=== PATIENT | male | born 1985 | race Caucasian/White ===

== ENCOUNTER 2018-09-03 18:45 | Observation (INO) | payer BC, OTHER ==
[~2018-09-03 18:45] MED LIST: ISOVUE-370 76%-LOCM 1 ML ONE
[2018-09-03 19:47] LABS: #Eosinphils 0.1 thou/uL (0.0-0.7); #Lymphocytes 2.4 thou/uL (1.20-3.40); #Monocytes 0.8 thou/uL (0.11-0.59); #Neutrophils 6.6 thou/uL (1.40-6.50); %Basophils 0.4 % (0.0-1.0); %Eosinophils 0.6 % (0.0-10.0); %Lymphocytes 24.5 % (21.0-51.0); %Monocytes 7.7 % (0.0-10.0); %Neutrophils 66.9 % (42.0-75.0); Hemoglobin 15.3 g/dL (14.0-18.0); Mean Corpuscular HGB CONC 33.6 g/dL (32.0-36.0); Mean Corpuscular Hemoglobin 29.9 pg (27.0-31.0); Mean Corpuscular Volume 89.1 fL (78.0-98.0); Platelet Count 254 thou/uL (130-400); RBC Distribution Width 12.3 % (11.5-14.5); White Blood Cell (WBC) Count 9.9 thou/uL (4.8-10.8)
[2018-09-03 20:06] LABS: ALT (SGPT) 22 U/L (8-55); AST (SGOT) 20 U/L (5-34); Albumin 4.4 g/dL (3.5-5.0); Alkaline Phosphatase 54 U/L (40-150); Anion Gap 11 mmol/L (10-20); BUN (Urea Nitrogen) 10 mg/dL (8.9-20.6); Bilirubin, Total 0.8 mg/dL (0.2-1.2); CK (CPK) 164 U/L (30-200); Calc. Creatinine Clearance 0 mL/min (70-130); Calcium 9.7 mg/dL (7.8-10.44); Carbon Dioxide 25 mmol/L (22-29); Chloride 104 mmol/L (98-107); Estimated GFR-MDRD Greater than 90; Glucose 92 mg/dL (70-105); Lipase 23 U/L (8-78); Potassium 4.1 mmol/L (3.5-5.1); Protein, Total 7.4 g/dL (6.0-8.3); Sodium 136 mmol/L (136-145)
[2018-09-03 20:09] LABS: Bilirubin Negative (Negative); Blood, Urine Negative (Negative); Clarity CLEAR (Clear); Glucose, Urine (Dipstick) Negative (Negative); Leukocyte Negative (Negative); Nitrite Negative (Negative); Protein, Urine (Dipstick) Negative (Neg-Trace); Specific Gravity, Urine 1.002 (1.002-1.036); Urobilinogen 0.2 mg/dL (0.2-1.0); pH, Urine 6.5 (5.0-9.0)
[2018-09-03] MEDS ORDERED: Ondansetron PF 4 MG/2 ML Vial ONE (21:30)
[2018-09-03] MEDS ORDERED: Dicyclomine 20 MG TAB ONE (21:30)
[2018-09-03] MEDS ORDERED: Ketorolac Tromethamine 30 MG/ML VIAL ONE (21:30)
--- NOTE | 2018-09-03 23:01 | CT ---
CT ABDOMEN AND PELVIS WITH IV CONTRAST: 09/03/18 HISTORY: Abdominal pain. FINDINGS: The lung bases are clear. The liver, spleen, pancreas , adrenal glands and right kidney are normal. T he patient is post cholecystectomy. There is a nonobstructing tiny calculus in the left kidney. There is an exophytic complex mass arising from the left kidney measuring 2.7 cm. No free air, free fluid or lymphadenopathy is seen in the abdomen or pelvis. A small fat containing l eft inguinal hernia is seen. The appendix is dilated and fluid filled with periappendiceal inflammato ry changes. A circumaortic left renal vein is present. IMPRESSION: 1. Acute appendicitis. 2. Complex 2.7 cm left renal mass. This should be evaluated with an MRI (with and without IV co ntrast). 3. Tiny nonobstructing left renal calculus. Discussed over the telephone with Gracie Conte NP of the Emergency Room at 10:52 p.m. POS: FRANCES
[2018-09-03] MEDS ORDERED: Piperacillin/Tazobactam 4.5 GM VIAL ONE (23:19)
[2018-09-03] MEDS ORDERED: Sodium Chloride 0.9% 100 ML ONE (23:20)
[2018-09-04] MEDS ORDERED: Ondansetron ODT 4 MG TAB SL PRN (00:11)
[2018-09-04] MEDS ORDERED: Ondansetron PF 4 MG/2 ML Vial IVP PRN (00:11)
[2018-09-04] MEDS ORDERED: Acetaminophen 325 MG TAB PO PRN (00:11)
[2018-09-04] MEDS ORDERED: Morphine 4 MG/ML VIAL SLOW IVP PRN (00:12)
[2018-09-04] MEDS ORDERED: Ketorolac Tromethamine 30 MG/ML VIAL IVP PRN (00:12)
[2018-09-04 00:29] VITALS: BMI 37.3
[2018-09-04] MEDS: Sodium Chloride 0.9% 1,000 ML IV SCH ×2 (01:02→06:04)
[2018-09-04] MEDS ORDERED: Acetaminophen 1,000 MG in Premix Bag 1 BAG IVPB SCH (08:15)
[2018-09-04] MEDS ORDERED: Piperacillin/Tazobactam 3.375 GM in Sodium Chloride 0.9% 100 ML IVPB SCH (09:00)
[2018-09-04] MEDS ORDERED: Ketorolac Tromethamine 30 MG/ML VIAL IVP SCH (09:00)
[2018-09-04] MEDS ORDERED: traMADol HCl 50 MG TAB PO PRN ×2 (09:46)
[2018-09-04] MEDS ORDERED: Ibuprofen 600 MG TAB PO PRN (09:46)
[2018-09-04] MEDS ORDERED: Acetaminophen 500 MG TAB PO PRN (09:46)
[2018-09-04] MEDS ORDERED: Ondansetron HCl/PF 4 MG/2 ML Vial IVP PRN (10:05)
[2018-09-04] MEDS ORDERED: Promethazine HCl 25 MG/ML VIAL IM PRN (10:05)
[2018-09-04] MEDS ORDERED: Promethazine HCl 25 MG/ML VIAL SLOW IVP PRN (10:05)
--- NOTE | 2018-09-04 10:13 | HP ---
HISTORY OF PRESENT ILLNESS: Benjamín Mccoy junior is a 33-year-old male from [facility], , who presents with a 2-day history of lower abdominal pain, localized to the right lower quadrant. Pain is worse with movement. He has suffered anorexia. He presents to the emergency room. He was noted to have a white count of 9 and hemoglobin of 15. Comprehensive metabolic profile is normal. Suspected appendicitis. He underwent a CAT scan of the abdomen and pelvis on 09/03/2018 at 8:56, noting changes consistent with acute appendicitis. He had a complex 2.7 cm left renal mass that on MRI was suggested. He had a small fat-containing left inguinal hernia. He had a nonobstructing calculus in the left kidney. The patient has been afebrile. Plan is for laparoscopic video appendectomy as an outpatient, outpatient workup of this left renal mass, and examination to discuss his fat-containing hernia in the future. ALLERGIES: NONE. HABITS: Tobacco, none. Alcohol, none. MEDICATIONS: 1. Losartan 25 mg a day. 2. Amlodipine 10 mg at bedtime. In our hospital, he has been receiving Zosyn. PAST SURGICAL HISTORY: 1. Laparoscopic cholecystectomy. 2. ORIF of left lower extremity fracture. PAST MEDICAL HISTORY: 1. Hypertension. 2. Obesity, 5 feet 7 inches, 230 pounds, 37 BMI. PHYSICAL EXAMINATION: HEAD, EARS, EYES, NOSE, AND THROAT: Unremarkable. LUNGS: Clear to auscultation. CARDIAC: Regular rate and rhythm without murmur or gallop. ABDOMEN: Soft. Tenderness in his right lower quadrant, guarding, rebound. EXTREMITIES: Unremarkable. ASSESSMENT AND PLAN: 1. Acute appendicitis. We recommend laparoscopic video appendectomy. Risks of infection, bleeding, visceral injury were explained and he consents. 2. Left renal mass. He will need workup as an outpatient and referral to Urology. 3. Inguinal hernia, suggested on the CAT scan, fat containing, left, suggested. We will examine him as outpatient in the office on followup. 4. Hypertension. 5. Obesity. 6. Metabolic syndrome. 7. Circumaortic left renal vein present on CAT scan. Job ID: [id number]
[2018-09-04] MEDS ORDERED: Bupivacaine HCl 0.5%/Epinephrine 1:200,000/PF 30 ml Vial ONE (10:36)
[2018-09-04] MEDS ORDERED: Lidocaine 2% Jelly 5 ML TUBE ONE (11:29)
[2018-09-04] MEDS ORDERED: Midazolam HCl 2 mg/2 ml Vial ONE (11:29)
[2018-09-04] MEDS ORDERED: Fentanyl 100 MCG/2 ML VIAL ONE (11:29)
[2018-09-04] MEDS ORDERED: Adacel (T-DAP) 0.5 ML SYRINGE IM ONE (15:15)
--- NOTE | 2018-09-04 15:48 | OP ---
DATE OF PROCEDURE: 09/04/2018 PREOPERATIVE DIAGNOSIS: Acute appendicitis. POSTOPERATIVE DIAGNOSIS: Acute appendicitis. PROCEDURE PERFORMED: Laparoscopic appendectomy. ANESTHESIA: General, local 0.5% Marcaine with epinephrine 30 mL. Note, the patient was very obese. An appendectomy was very difficult due to fatty tissue surrounding the cecum, appendix, and terminal ileum requiring mobilization of the right colon and ileum. DESCRIPTION OF PROCEDURE: The patient was taken to the operating room, where under general anesthesia. Willett catheter was placed at the beginning of the procedure and removed at the end. Abdomen was prepared with ChloraPrep, draped in routine fashion. Local anesthetic was infiltrated in the skin and subcutaneous tissue about all port site. Infraumbilical incision was made, and pneumoperitoneum to 15 mmHg obtained with a Veress needle, replaced with a 5 port, video laparoscope was inserted. Right lateral subcostal incision was made and a 5 port placed. Suprapubic incision was made and a 12 port placed. The patient is very obese. Terminal ileum had to be mobilized using the LigaSure. The cecum had to be mobilized identifying a retrocecal appendix that was surrounded with abundant fat. Once the terminal ileum and right colon were mobilized, the appendix could be identified and was carefully dissected free from the terminal ileum to its base dividing its base with Endo-PARESH blue load stapler. Stapled cecal stump. Hemostasis was gained with clips. Irrigant and pneumoperitoneum were evacuated. After appendix placed in Endobag and removed, suprapubic fascia was approximated with 0 Vicryl. All skin incisions were approximated with subdermal 4-0 Monocryl and Hyndman glue applied. Job ID: [id number]
[2018-09-04 16:14] VITALS: BP 143/88; TEMP 97.8
[2018-09-04] MEDS ORDERED: PROPOFOL 200 MG/20 ML VIAL ONE (17:18)
[2018-09-04] MEDS ORDERED: Lidocaine 1% PF 5 ML VIAL ONE (17:18)
[2018-09-04] MEDS ORDERED: Succinylcholine Chloride 20 MG/ML 10 ml SYRINGE FS ONE (17:18)
[2018-09-04] MEDS ORDERED: Ondansetron PF 4 MG/2 ML Vial ONE (17:18)
[2018-09-04] MEDS ORDERED: Glycopyrrolate 0.2 MG/ML 5 ML SYRINGE ONE (17:18)
[2018-09-04] MEDS ORDERED: Rocuronium Bromide 10 MG/ML (10ML VIAL) ONE (17:18)
[2018-09-04] MEDS ORDERED: Dexamethasone 20 MG/5 ML VIAL ONE (17:18)
[2018-09-04] MEDS ORDERED: ePHEDrine 50 MG/ML VIAL ONE (17:18)
[2018-09-04] MEDS ORDERED: Amlodipine 10 MG TAB PO SCH (21:00)
--- NOTE | 2018-09-05 02:37 | DIS ---
DATE OF ADMISSION: 09/03/2018 DATE OF DISCHARGE: 09/04/2018 Mr. Mccoy was admitted from the emergency room with acute appendicitis, kept overnight for intravenous fluids and antibiotics, taken for laparoscopic video appendectomy and discharged home the next day on oral analgesics, Tylenol, and Motrin [id number] and Ultram 50 if needed 1 to 2 p.o. q.i.d. p.r.n. pain, #21, no refill. 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 CAT scan supporting diagnosis appendicitis, kept overnight for intravenous fluids and antibiotics, taken for laparoscopic video appendectomy and discharged home. Diet and activity as tolerated. No lifting restrictions. Follow up in my office in 2 weeks. Job ID: [id number]
[2018-09-05] MEDS ORDERED: Losartan 25 MG TAB PO SCH (09:00)
== END 2018-09-04 16:18 | disposition home or self-care (01) ==
LOC: ERS 18:45 → SURG A 22:55
PROVIDERS: ADMIT Specialist; ATTEND Specialist
PROC: 0DTJ4ZZ Resection of Appendix, Percutaneous Endoscopic Approach (ICD-10-PCS; principal; 2018-09-04)
DX: K35.80 Unspecified acute appendicitis (principal); N20.0 Calculus of kidney; K40.90 Unilateral inguinal hernia, without obstruction or gangrene, not specified as recurrent; I10 Essential (primary) hypertension; E88.81 Metabolic syndrome and other insulin resistance; E66.9 Obesity, unspecified; Z68.37 Body mass index [BMI] 37.0-37.9, adult; Z79.899 Other long term (current) drug therapy
CPT/HCPCS: 36415; 74177; 80053; 81003; 82550; 83690; 85025; 88304; 90715; 96361; 96365; 96375; 96376; G0378; J0131; J0670; J1100; J1885; J2001; J2250; J2405; J2543; J2704; J3010; J3490; Q9966

== ENCOUNTER 2018-09-11 15:54 | Observation (INO) | payer BC ==
[2018-09-11 16:31] LABS: Bilirubin Negative (Negative); Blood, Urine Negative (Negative); Clarity CLEAR (Clear); Glucose, Urine (Dipstick) Negative (Negative); Leukocyte Negative (Negative); Nitrite Negative (Negative); Protein, Urine (Dipstick) Negative (Neg-Trace); Specific Gravity, Urine 1.011 (1.002-1.036); Urobilinogen 0.2 mg/dL (0.2-1.0)
[2018-09-11 16:33] LABS: #Lymphocytes 0.8 thou/uL (1.20-3.40); #Monocytes 0.5 thou/uL (0.11-0.59); #Neutrophils 7.9 thou/uL (1.40-6.50); %Basophils 0.1 % (0.0-1.0); %Eosinophils 0.1 % (0.0-10.0); %Lymphocytes 8.8 % (21.0-51.0); %Monocytes 5.2 % (0.0-10.0); %Neutrophils 85.8 % (42.0-75.0); Hemoglobin 15.7 g/dL (14.0-18.0); Mean Corpuscular HGB CONC 33.6 g/dL (32.0-36.0); Mean Corpuscular Hemoglobin 29.5 pg (27.0-31.0); Mean Corpuscular Volume 87.8 fL (78.0-98.0); Mean Platelet Volume 6.7 fL (7.4-10.4); Platelet Count 277 thou/uL (130-400); Red Blood Cell (RBC) Count 5.34 mill/uL (4.70-6.10); White Blood Cell (WBC) Count 9.2 thou/uL (4.8-10.8)
[2018-09-11 16:56] LABS: ALT (SGPT) 20 U/L (8-55); AST (SGOT) 11 U/L (5-34); Albumin 4.4 g/dL (3.5-5.0); Alkaline Phosphatase 51 U/L (40-150); Anion Gap 11 mmol/L (10-20); BUN (Urea Nitrogen) 10 mg/dL (8.9-20.6); Bilirubin, Total 0.7 mg/dL (0.2-1.2); Calc. Creatinine Clearance 0 mL/min (70-130); Calcium 9.2 mg/dL (7.8-10.44); Carbon Dioxide 28 mmol/L (22-29); Chloride 101 mmol/L (98-107); Estimated GFR-MDRD 85; Globulin 3.1 g/dL (2.4-3.5); Glucose 83 mg/dL (70-105); Lipase 26 U/L (8-78); Potassium 3.6 mmol/L (3.5-5.1); Protein, Total 7.5 g/dL (6.0-8.3); Sodium 136 mmol/L (136-145)
[2018-09-11] MEDS ORDERED: ISOVUE-370 76%-LOCM 1 ML ONE (17:00)
[2018-09-11] MEDS ORDERED: Iopamidol 370 76% 50 ML VIAL FS ONE (17:02)
--- NOTE | 2018-09-11 18:13 | CT ---
CT abdomen and pelvis: 09/11/2018 COMPARISON: 09/03/2018 HISTORY: Abdominal cramping with nausea, vomiting, and diarrhea TECHNIQUE: Axial CT imaging obtained at 5 mm intervals from lung bases through pubic symphysis with I V contrast. Coronal reformatted imaging obtained. FINDINGS: The imaged lung bases are unremarkable. There are numerous foci of extraluminal gas noted within the mesentery throughout the abdomen/pelvis, including in the right upper quadrant, throughout the central mesentery, and within the anterior aspect of the mesentery within the mid abdomen. Cholecystectomy clips are present. The liver, spleen, pancreas, adrenal glands, and kidneys demonstrate no acute findings. There is a nonobstructing stone in the upper pole of the left kidney measuring 4 mm. There is an exophytic lesion emanating from the posterior left renal mid pole measuring 2.4 cm, stabl e, with Hounsfield units of 43, suspicious for a complex cystic mass or solid renal mass. Evaluation of the bowel is limited without oral contrast media. There is a suture line in the region of the cecal apex suggesting prior appendectomy. There is minimal stranding of the fat within the right lower quadrant. No abscess is noted in the abd omen or pelvis. The vascular structures of the abdomen and pelvis appear patent. No lymphadenopathy is noted within t he abdomen or pelvis. Osseous structures of abdomen and pelvis demonstrate no worrisome lytic or blastic bone lesions. IMPRESSION: Multifocal extraluminal gas throughout the mesenteric fat of the abdomen/pelvis. Differen tial diagnosis includes gas from prior laparoscopic surgery and bowel perforation. Clinical correlation is essential. No abscess or evidence of bowel obstruction. Nonspecific hypodense lesion within the left kidney which could represent a renal cell carcinoma. Fur ther assessment via CT examination of abdomen with and without contrast using a renal mass protocol advised. Gracie Conte made aware via phone at 6:10 PM 09/11/2018
--- NOTE | 2018-09-11 22:02 | CT ---
CT ABDOMEN AND PELVIS WITH ORAL CONTRAST: Date: 09-11-18 Time: 9:35 p.m. Comparison: 09-11-18 at 5:58 p.m. History: Recent laparoscopic appendectomy, pain. Technique: Axial CT imaging at 5 mm intervals from lung bases through pubic symphysis with oral contr ast. Coronal reformatted imaging obtained. FINDINGS: Imaged lung bases unremarkable. Stable extraluminal gas noted within the mesentery of the abdomen/pel vis, most prominent in the right upper quadrant. Liver, spleen, pancreas, adrenal glands and right ki dney unremarkable. Gallbladder is surgically absent. Exophytic hypodense 2.4 cm lesion emanates from midpole left kidney which may represent a complex cyst or solid renal mass lesion. No evidence for bowel obstruction. No free fluid seen in the abdomen/pelvis. There is mild wall thick ening of the cecum and mild wall thickening of multiple distal small bowel loops within the right low er quadrant. No lymphadenopathy. Osseous structures unremarkable. IMPRESSION: 1. Extraluminal gas throughout the mesenteric fat. This is favored to be secondary to prior laparosco pic surgery given lack of extraluminal contrast media and lack of free fluid. Bowel perforation canno t be fully excluded but is thus felt less likely. 2. Mild wall thickening of cecum and distal small bowel loops which may signify residual mild inflamm atory change. Follow up imaging advised as clinically warranted. 3. Exophytic lesion emanating from midpole left kidney which is not consistent with a simple cyst. Th is could represent a complex cyst or a solid renal mass. Follow up renal mass CT examination with and without IV contrast advised. Code T POS: OFF
[2018-09-11 22:23] LABS: Lactic Acid 0.7 mmol/L (0.5-2.2)
[2018-09-11] MEDS ORDERED: traMADol HCl 50 MG TAB PO PRN (22:24)
[2018-09-11] MEDS ORDERED: Ondansetron PF 4 MG/2 ML Vial IVP PRN (22:25)
[2018-09-11] MEDS: D5 1/2 NS w/20 mEq KCL 1,000 ML IV SCH (23:16)
[2018-09-11] MEDS: traMADol HCl 50 MG TAB PO PRN (23:25)
[2018-09-11 23:34] VITALS: BMI 36.0
--- NOTE | 2018-09-12 01:08 | HP ---
CHIEF COMPLAINT: Abdominal pain. HISTORY OF PRESENT ILLNESS: Mr. Mccoy is a 33-year-old man, who underwent a laparoscopic appendectomy one week ago by Dr. Llamas. He states that he had been feeling pretty well until Wednesday night. He went out and had a big steak and afterwards started feeling sick. He said that he thought that he just had too much to eat. He developed nausea, vomiting, and profuse diarrhea. Wednesday, his symptoms persisted, although the diarrhea is off and today, he felt like he was getting a little better, but then his symptoms recurred, so he decided to come into the hospital. He describes his pain as crampy across both upper abdominal quadrants, nonradiating. It is not made worse by activity or movement. He has not had any diarrhea today, but he still has some nausea. He denies any fevers or chills. He denies any blood or black color to his stool or emesis. No other unusual ingestions and no ill contacts. Nobody else got sick. PAST MEDICAL HISTORY: Hypertension. PAST SURGICAL HISTORY: Laparoscopic appendectomy and cholecystectomy, ORIF of left lower extremity fracture. SOCIAL HISTORY: He does not smoke, drink, or use illicit drugs. ALLERGIES: HE HAS NO KNOWN DRUG ALLERGIES. MEDICATIONS: He takes losartan and amlodipine for blood pressure, but recently ran out and has not had those pills recently. REVIEW OF SYSTEMS: The patient did have some chills on Wednesday night and was sweaty earlier today, but did not have a fever when checked. PHYSICAL EXAMINATION: GENERAL: Reveals an obese man in no acute distress. He is not flushed, toxic, jaundiced, or icteric. HEENT: Unremarkable. NECK: Supple without lymphadenopathy or thyroid nodules. HEART: Regular in its rate and rhythm without murmurs, rubs, or gallops. LUNGS: Clear to auscultation bilaterally. ABDOMEN: Soft and nondistended. He has a fair amount of bruising of the umbilical incision. He is slightly sore to palpation near his incisions, but otherwise nontender. He does not exhibit any rigidity, rebound, or guarding in the deep palpation in all 4 quadrants. Bowel sounds are present. EXTREMITIES: Warm and well perfused without edema. NEURO: No focal deficits. PSYCHIATRIC: Alert, oriented, and appropriate. LABORATORY DATA: White count is normal at 9.2. He does have a bit of a left shift. Electrolytes are unremarkable. Lactate is slightly elevated at 2.3. Urine is clear. CT of the abdomen and pelvis with IV contrast only revealed a fair amount of gas in the mesentery, but no secondary signs of bowel injury or inflammation such as bowel wall thickening or fluid. ASSESSMENT AND PLAN: Likely gastroenteritis or food poisoning with free air on CT, presumably due to recent laparoscopic surgery. This is more than is usually seen with laparoscopic surgery, but he does not have any signs of peritonitis. I have asked to repeat the CT with oral contrast to better evaluate the bowel and we will plan to observe him overnight. He has not been able to keep down much over the last 2 days due to his illness and is somewhat dehydrated as evidenced by his elevated lactate. He has received IV fluids in the ER and I will continue these as long as his CT looks okay. I will plan to try him on clear liquids and see how he tolerates this. Job ID: [id number]
[2018-09-12] MEDS: traMADol HCl 50 MG TAB PO PRN ×2 (04:31→08:16)
[2018-09-12] MEDS: D5 1/2 NS w/20 mEq KCL 1,000 ML IV SCH (04:33)
[2018-09-12 06:09] LABS: #Monocytes 0.8 thou/uL (0.11-0.59); %Basophils 0.3 % (0.0-1.0); %Eosinophils 0.3 % (0.0-10.0); %Lymphocytes 13.1 % (21.0-51.0); %Monocytes 9.7 % (0.0-10.0); %Neutrophils 76.6 % (42.0-75.0); Hemoglobin 14.2 g/dL (14.0-18.0); Mean Corpuscular HGB CONC 33.6 g/dL (32.0-36.0); Mean Corpuscular Hemoglobin 29.9 pg (27.0-31.0); Mean Corpuscular Volume 88.9 fL (78.0-98.0); Mean Platelet Volume 6.7 fL (7.4-10.4); Platelet Count 201 thou/uL (130-400); RBC Distribution Width 11.8 % (11.5-14.5); Red Blood Cell (RBC) Count 4.74 mill/uL (4.70-6.10); White Blood Cell (WBC) Count 7.8 thou/uL (4.8-10.8)
--- NOTE | 2018-09-12 07:36 | ULT ---
GALLBLADDER ULTRASOUND: INDICATION: Abdominal pain. FINDINGS: Thee is mild heterogeneity of the hepatic echotexture. A discrete hepatic lesion is not identified. The gallbladder is surgically absent. The common duct is within normal limits of size for patients status post cholecystectomy, measuring 7 mm in diameter. No ascites. IMPRESSION: 1. Slight coarsening of the hepatic echotexture. This could relate to hepatic steatosis or hepatoce llular disease. Correlate with liver function enzymes. 2. Status post cholecystectomy with evidence for reservoir effect. POS: TONYK
[2018-09-12] MEDS: Losartan 25 MG TAB PO SCH (08:15)
[2018-09-12] MEDS: Famotidine 20 MG TAB PO SCH ×2 (08:15→20:03)
--- NOTE | 2018-09-12 14:53 | PDOC.GSPN ---
Surgery Progress Note: Subj - Subjective Narrative: Patient is feeling better today. He is still having some crampy abdominal pain and had diarrhea after having some frozen lemonade. No melena blood or mucus in the stool. Vitals are stable white count is normal and lactate has normalized. Abdominal exam is still benign, with only mild upper abdominal tenderness but no rebound rigidity or guarding. Repeat CT with contrast and show any abnormalities of the bowel. I have asked the nurses to obtain a stool sample if he continues to have diarrhea. Otherwise, if he tolerates his diet and his pain is managed on oral medications alone, he may be able to be discharged later today or tomorrow. Surgery Progress Note: Obj - Vital signs Vital signs: Vital Signs - Most Recent Temp Pulse Resp BP Pulse Ox 98.3 F 89 18 142/94 H 96 09/12/18 12:00 09/12/18 12:00 09/12/18 12:00 09/12/18 12:00 09/12/18 12:00 Surgery Progress Note: Results - Labs Result Diagrams: 09/12/18 05:18 09/11/18 16:25 Lab results: Laboratory Results - last 24 hr 09/12/18 05:18 WBC 7.8 RBC 4.74 Hgb 14.2 Hct 42.1 MCV 88.9 MCH 29.9 MCHC 33.6 RDW 11.8 Plt Count 201 MPV 6.7 L Neutrophils % 76.6 H Lymphocytes % 13.1 L Monocytes % 9.7 Eosinophils % 0.3 Basophils % 0.3 Neutrophils # 6.0 Lymphocytes # 1.0 L Monocytes # 0.8 H Eosinophils # 0.0 Basophils # 0.0
[2018-09-12] MEDS ORDERED: Amlodipine 10 MG TAB PO SCH (21:00)
[2018-09-13] MEDS: Famotidine 20 MG TAB PO SCH (08:14)
[2018-09-13] MEDS: Losartan 25 MG TAB PO SCH (08:14)
[2018-09-13] MEDS ORDERED: Saccharomyces boulardii 250 MG CAP PO SCH (09:00)
[2018-09-13 12:15] VITALS: BP 138/95; TEMP 98
== END 2018-09-13 12:25 | disposition home or self-care (01) ==
LOC: ERS 15:54 → SURG A 23:07
PROVIDERS: ADMIT Surgery; ATTEND Surgery
DX: K52.9 Noninfective gastroenteritis and colitis, unspecified (principal); I10 Essential (primary) hypertension; Z79.899 Other long term (current) drug therapy
CPT/HCPCS: 36415; 74176; 74177; 76705; 80053; 81003; 83605; 83630; 83690; 85025; 87040; 87045; 87046; 87086; 87324; 87449; 87899; 96360; 96361; 96372; G0378; J0500; Q9966; Q9967